=== PATIENT | male | born 1980 | race Caucasian/White ===

== ENCOUNTER 2023-03-19 16:29 | Emergency (ER) | payer BC ==
--- NOTE | 2023-03-19 16:52 | ED ---
General Adult HPI - General Source: patient, RN notes reviewed <Pattie Saeed - Last Filed: 03/19/23 17:09> - General Source: patient, family, RN notes reviewed Limitations: no limitations <Ramirez Ventura - Last Filed: 03/19/23 20:07> - General Stated complaint: Syncope Time Seen by Provider: 03/19/23 16:52 - History of Present Illness Initial comments: 42 year old male BIBA to the emergency department for chief complaint of syncope. He states that he was working in the yard all day when he disturbed a bees nest and started running from the bees. He states that he tripped over a log and injured his right calf. He states that following this he went into the house and was sitting in a chair when he states he "didn't feel right." He reports that he passed out and felt sweaty following this. He reports his states he was out for around 30 seconds. Did not fall or hit his head. Denies chest pain, shortness of breath. (Pattie Saeed) Patient is a pleasant 42-year-old male presenting to the emergency department following several events. 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 Patient was stung by a bee left hand. Patient was then right away and felt a pop in his rig ht calf. Patient states it felt like he was hit with a baseball bat. Patient has been having discomfort since that time. Discomfort is more moderate at this time. When patient got back inside he did have a syncopal episode. No injury. No headache or confusion. No neck or back pain. No chest pain or dyspnea. No abdominal pain. (Ramirez Ventura) - Related Data Allergies Allergy/AdvReac Type Severity Reaction Status Date / Time No Known Allergies Allergy Verified 03/19/23 16:55 Review of Systems ROS Other: All systems not noted in ROS Statement are negative. <Pattie Saeed - Last Filed: 03/19/23 17:09> ROS Other: All systems not noted in ROS Statement are negative. Constitutional: Denies: fever Eyes: Denies: eye pain ENT: Denies: ear pain Respiratory: Denies: cough, dyspnea Cardiovascular: Denies: chest pain Endocrine: Denies: fatigue Gastrointestinal: Denies: abdominal pain Genitourinary: Denies: dysuria Neurological: Denies: headache, weakness, confusion <Ramirez Ventura - Last Filed: 03/19/23 20:07> ROS Statement: Those systems with pertinent positive or pertinent negative responses have been documented in the HPI. General Exam <Pattie Saeed - Last Filed: 03/19/23 17:09> Limitations: no limitations General appearance: alert, in no apparent distress Head exam: Present: normocephalic Eye exam: Present: normal appearance, PERRL, EOMI ENT exam: Present: normal oropharynx Neck exam: Present: normal inspection. Absent: tenderness, meningismus Respiratory exam: Present: normal lung sounds bilaterally Cardiovascular Exam: Present: regular rate, normal rhythm Expanded Peripheral pulses: 2+: Radial (R), Radial (L), Dorsalis Pedis (R), Dorsalis Pedis (L) GI/Abdominal exam: Present: soft. Absent: tenderness Extremities exam: Present: calf tenderness (Patient does have some tenderness right calf. Achilles tendon does appear to be intact with squeezing of the calf.) Neurological exam: Present: alert, oriented X3, CN II-XII intact. Absent: motor sensory deficit Expanded Neurological exam: Present: protecting the airway Speech: Present: fluid speech Cranial nerves: EOM's Intact: Normal Motor strength exam: RUE: 5, LUE: 5, RLE: 5, LLE: 5 Eye Response: (4) open spontaneously Motor Response: (6) obeys commands Verbal Response: (5) oriented Psychiatric exam: Present: normal affect, normal mood Skin exam: Present: normal color <Ramirez Ventura - Last Filed: 03/19/23 20:07> - General Exam Comments Initial Comments: Visual Physical Exam Vital signs reviewed General: Well-appearing, nontoxic, no acute distress. Head: Normocephalic, atraumatic Eyes: PERRLA, EOMI ENT: Airway patent Chest: Nonlabored breathing Skin: No visual rash, normal skin tone Neuro: Alert and oriented 3 Musculoskeletal: No gross abnormalities (Pattie Saeed) Course Vital Signs 03/19/23 16:48 Temperature 98.3 F Pulse Rate 76 Respiratory 18 Rate Blood Pressure 157/98 O2 Sat by Pulse 100 Oximetry EKG Findings - EKG Results: EKG: interpreted by ERMD (Incomplete right bundle-branch), sinus rhythm, normal axis, normal ST/T <Ramirez Ventura - Last Filed: 03/19/23 20:07> Procedures - Orthopedic Splinting/Casting Injury #1 Side: right Upper Extremity Immobilizer: danny tape Lower Extremity Immobilizer: posterior splint <Ramirez Ventura - Last Filed: 03/19/23 20:07> Medical Decision Making <Pattie Saeed - Last Filed: 03/19/23 17:09> - Lab Data Result diagrams: 03/19/23 18:34 03/19/23 18:34 <Ramirez Ventura - Last Filed: 03/19/23 20:07> - Medical Decision Making I preformed the quick note portion of this chart. Electronically signed by Pattie Saeed PA-C. (Pattie Saeed) Was pt. sent in by a medical professional or institution ([facility], SLEEP TECH, urgent care, hospital, or shelter...) When possible be specific @ -No Did you speak to anyone other than the patient for history (EMS, parent, family, police, friend...)? What history was obtained from this source @ - is present and helps provide history Did you review nursing and triage notes (agree or disagree)? Why? @ -I reviewed and agree with nursing and triage notes Were old charts reviewed (outside hosp., previous admission, EMS record, old EKG, old radiological studies, urgent care reports/EKG's, shelter records)? Report findings @ -No old charts were reviewed Differential Diagnosis (chest pain, altered mental status, abdominal pain women, abdominal pain men, vaginal bleeding, weakness, fever, dyspnea, syncope, headache, dizziness, GI bleed, back pain, seizure, CVA, palpatations, mental health, musculoskeletal)? @ -Differential Musculoskeletal Muscular strain, contusion, ligament sprain, fracture, arthritis, septic arthritis, bursitis, cellulitis, muscle spasm, nerve compression, DVT, arterial occlusion, herpes zoster, electrolyte abnormality, tumor.... This is not meant to be in all inclusive list Differential Syncope: Valvular disease, hypertrophic cardiomyopathy, pulmonary embolism, tamponade, tachycardia, bradycardia, ID, hypovolemia, hemorrhage, dissection, anemia, intracranial hemorrhage, seizure, hypoglycemia, carbon monoxide poisoning, this is not meant to be an all-inclusive list. EKG interpreted by me (3pts min.). @ -As above X-rays interpreted by me (1pt min.). @ -Chest x-ray shows no acute process CT interpreted by me (1pt min.). @ -None done U/S interpreted by me (1pt. min.). @ -Report reviewed What testing was considered but not performed or refused? (CT, X-rays, U/S, labs)? Why? @ -None What meds were considered but not given or refused? Why? @ -None Did you discuss the management of the patient with other professionals (professionals i.e. , PA, SLEEP TECH, lab, RT, psych nurse, delinquency prevention social worker, covering and lining supervisor, teacher, mail officer, keycase assembler)? Give summary @ -No Was smoking cessation discussed for >3mins.? @ -No Was critical care preformed (if so, how long)? @ -No Were there social determinants of health that impacted care today? How? (Homelessness, low income, unemployed, alcoholism, drug addiction, transportation, low edu. Level, literacy, decrease access to med. care, senior living, rehab)? @ -No Was there de-escalation of care discussed even if they declined (Discuss DNR or withdrawal of care, Hospice)? DNR status @ -No What co-morbidities impacted this encounter? (DM, HTN, Smoking, COPD, CAD, Cancer, CVA, ARF, Chemo, Hep., AIDS, mental health diagnosis, sleep apnea, morbid obesity)? @ -None Was patient admitted / discharged? Hospital course, mention meds given and route, prescriptions, significant lab abnormalities, going to OR and other pertinent info. @ -Patient reevaluated and resting comfortably in bed. Patient only complaining of some discomfort of his right calf. Patient and family updated on results and need for follow-up. Specifically updated for follow-up as well with orthopedics. Splint placed. Prescription given for crutches. Patient is made aware of concern for ruptured calf muscle. Undiagnosed new problem with uncertain prognosis? @ -No Drug Therapy requiring intensive monitoring for toxicity (Heparin, Nitro, Insulin, Cardizem)? @ -No Were any procedures done? @ -See above Diagnosis/symptom? @ -Calf Strain, syncope Acute, or Chronic, or Acute on Chronic? @ -Acute, acute Uncomplicated (without systemic symptoms) or Complicated (systemic symptoms)? @ -default Side effects of treatment? @ -No Exacerbation, Progression, or Severe Exacerbation? @ -No Poses a threat to life or bodily function? How? (Chest pain, USA, ID, pneumonia, PE, COPD, DKA, ARF, appy, cholecystitis, CVA, Diverticulitis, Homicidal, Suicidal, threat to staff... and all critical care pts) @ -No (Ramirez Ventura) - Lab Data Lab Results 03/19/23 03/19/23 03/19/23 Range/Units 18:30 18:34 18:34 WBC 15.0 H (3.8-10.6) k/uL RBC 4.96 (4.30-5.90) m/uL Hgb 15.9 (13.0-17.5) gm/dL Hct 45.2 (39.0-53.0) % MCV 91.0 (80.0-100.0) fL MCH 32.0 (25.0-35.0) pg MCHC 35.2 (31.0-37.0) g/dL RDW 11.8 (11.5-15.5) % Plt Count 216 (150-450) k/uL MPV 7.4 Neutrophils % 92 % Lymphocytes % 5 % Monocytes % 2 % Eosinophils % 0 % Basophils % 0 % Neutrophils # 13.8 H (1.3-7.7) k/uL Lymphocytes # 0.8 L (1.0-4.8) k/uL Monocytes # 0.3 (0-1.0) k/uL Eosinophils # 0.0 (0-0.7) k/uL Basophils # 0.0 (0-0.2) k/uL PT 10.3 (9.0-12.0) sec INR 1.0 (<1.2) APTT 22.9 (22.0-30.0) sec Sodium (137-145) mmol/L Potassium (3.5-5.1) mmol/L Chloride (98-107) mmol/L Carbon Dioxide (22-30) mmol/L Anion Gap mmol/L BUN (9-20) mg/dL Creatinine (0.66-1.25) mg/dL Est GFR (CKD-EPI)AfAm (>60 ml/min/1.73 sqM) Est GFR (CKD-EPI)NonAf (>60 ml/min/1.73 sqM) Glucose (74-99) mg/dL POC Glucose (mg/dL) 119 H (70-110) mg/dL POC Glu Granite Installer ID Diana Sy Calcium (8.4-10.2) mg/dL Magnesium (1.6-2.3) mg/dL Total Bilirubin (0.2-1.3) mg/dL AST (17-59) U/L ALT (4-49) U/L Alkaline Phosphatase (38-126) U/L Troponin I (0.000-0.034) ng/mL Total Protein (6.3-8.2) g/dL Albumin (3.5-5.0) g/dL 03/19/23 03/19/23 Range/Units 18:34 18:34 WBC (3.8-10.6) k/uL RBC (4.30-5.90) m/uL Hgb (13.0-17.5) gm/dL Hct (39.0-53.0) % MCV (80.0-100.0) fL MCH (25.0-35.0) pg MCHC (31.0-37.0) g/dL RDW (11.5-15.5) % Plt Count (150-450) k/uL MPV Neutrophils % % Lymphocytes % % Monocytes % % Eosinophils % % Basophils % % Neutrophils # (1.3-7.7) k/uL Lymphocytes # (1.0-4.8) k/uL Monocytes # (0-1.0) k/uL Eosinophils # (0-0.7) k/uL Basophils # (0-0.2) k/uL PT (9.0-12.0) sec INR (<1.2) APTT (22.0-30.0) sec Sodium 138 (137-145) mmol/L Potassium 3.8 (3.5-5.1) mmol/L Chloride 101 (98-107) mmol/L Carbon Dioxide 25 (22-30) mmol/L Anion Gap 12 mmol/L BUN 13 (9-20) mg/dL Creatinine 0.75 (0.66-1.25) mg/dL Est GFR (CKD-EPI)AfAm >90 (>60 ml/min/1.73 sqM) Est GFR (CKD-EPI)NonAf >90 (>60 ml/min/1.73 sqM) Glucose 147 H (74-99) mg/dL POC Glucose (mg/dL) (70-110) mg/dL POC Glu Granite Installer ID Calcium 9.2 (8.4-10.2) mg/dL Magnesium 1.9 (1.6-2.3) mg/dL Total Bilirubin 0.5 (0.2-1.3) mg/dL AST 35 (17-59) U/L ALT 25 (4-49) U/L Alkaline Phosphatase 68 (38-126) U/L Troponin I <0.012 (0.000-0.034) ng/mL Total Protein 7.0 (6.3-8.2) g/dL Albumin 4.4 (3.5-5.0) g/dL Disposition <Pattie Saeed - Last Filed: 03/19/23 17:09> Is patient prescribed a controlled substance at d/c from ED?: No Time of Disposition: 20:06 <Ramirez Ventura - Last Filed: 03/19/23 20:07> Clinical Impression: Strain of right calf muscle, Syncope Disposition: HOME SELF-CARE Condition: Stable Instructions (If sedation given, give patient instructions): Muscle Strain (ED), Leg Pain (ED), Syncope (ED) Additional Instructions: Please do follow-up to primary care physician in the next day or 2 for recheck. Prescription provided for crutches. Please also follow-up with orthopedics and have them further evaluate leg. There is concern for possible muscle tear or Achilles tear versus other. Return for chest pain or shortness of breath, headache or confusion, weakness, abdominal or back pain, worsening symptoms or other area other concerns. Referrals: Tim Samayoa MD [STAFF PHYSICIAN] - 1-2 days Adam Greer DO [Doctor of Osteopathic Medicine] - 1-2 days
[2023-03-19 17:02] VITALS: RESP 18; TEMP 98.3
[2023-03-19 18:32] LABS: Glucose,Whole Blood 119 mg/dL (70-110)
--- NOTE | 2023-03-19 19:16 | US ---
EXAMINATION TYPE: US venous doppler duplex LE RT DATE OF EXAM: 03/19/2023 6:48 PM COMPARISON: NONE CLINICAL INDICATION: Male, 42 years old with history of pain; Pt states he thinks he tore a muscle in his leg after running away from bees today. No hx of DVT. Not on blood thinners. Pain in calf SIDE PERFORMED: Right TECHNIQUE: The lower extremity deep venous system is examined utilizing real time linear array sonog chasity with graded compression, doppler sonography and color-flow sonography. VESSELS IMAGED: Common Femoral Vein Deep Femoral Vein Greater Saphenous Vein * Femoral Vein Popliteal Vein Small Saphenous Vein * Proximal Calf Veins (* superficial vessels) Right Leg: No evidence for DVT IMPRESSION: Grayscale, color doppler, spectral doppler imaging performed of the deep veins of the lo wer extremities. There is normal flow, compressibility, vascular waveforms.
[2023-03-19 19:18] LABS: Basophils % (A) 0 %; Eosinophils % (A) 0 %; HCT 45.2 % (39.0-53.0); HGB 15.9 gm/dL (13.0-17.5); Lymphocytes # (A) 0.8 k/uL (1.0-4.8); Lymphocytes % (A) 5 %; MCHC 35.2 g/dL (31.0-37.0); Mean Platelet Volume 7.4; Monocytes # (A) 0.3 k/uL (0-1.0); Monocytes % (A) 2 %; Neutrophils # (A) 13.8 k/uL (1.3-7.7); Neutrophils % (A) 92 %; Platelet Count 216 k/uL (150-450); RBC 4.96 m/uL (4.30-5.90); RDW 11.8 % (11.5-15.5)
[2023-03-19 19:26] LABS: ALT 25 U/L (4-49); AST 35 U/L (17-59); African American GFR (CKD) >90 (>60 ml/min/1.73 sqM); Albumin 4.4 g/dL (3.5-5.0); Alkaline Phosphatase 68 U/L (38-126); Anion Gap 12 mmol/L; Blood Urea Nitrogen 13 mg/dL (9-20); Calcium 9.2 mg/dL (8.4-10.2); Carbon Dioxide 25 mmol/L (22-30); Chloride 101 mmol/L (98-107); Glucose 147 mg/dL (74-99); Magnesium 1.9 mg/dL (1.6-2.3); Non-African American GFR(CKD) >90 (>60 ml/min/1.73 sqM); Potassium 3.8 mmol/L (3.5-5.1); Sodium 138 mmol/L (137-145); Total Bilirubin 0.5 mg/dL (0.2-1.3)
[2023-03-19 19:29] LABS: Partial Thromboplastin Time 22.9 sec (22.0-30.0); Prothrombin Time 10.3 sec (9.0-12.0)
--- NOTE | 2023-03-19 19:39 | XR ---
EXAMINATION TYPE: XR chest 2V DATE OF EXAM: 03/19/2023 7:21 PM CLINICAL INDICATION:Male, 42 years old with history of syncope; COMPARISON: None TECHNIQUE: XR chest 2V Frontal and lateral views of the chest. FINDINGS: Lungs/Pleura: There is no evidence of pleural effusion, focal consolidation, or pneumothorax. Pulmonary vascularity: Unremarkable. Heart/mediastinum: Cardiomediastinal silhouette is unremarkable. Musculoskeletal: No acute osseous pathology. IMPRESSION: No acute cardiopulmonary disease/process.
[2023-03-19] MEDS ORDERED: ACET/COD 300 MG/30 MG STARTER PACK 6 TAB BTL PO STA (20:06)
[2023-03-19 20:27] VITALS: BP 136/88; PULSE 93
== END 2023-03-19 20:31 | disposition home or self-care (01) ==
LOC: EC 16:29
DX: S86.911A Strain of unspecified muscle(s) and tendon(s) at lower leg level, right leg, initial encounter (principal); R55 Syncope and collapse; W01.0XXA Fall on same level from slipping, tripping and stumbling without subsequent striking against object, initial encounter; Y92.096 Garden or yard of other non-institutional residence as the place of occurrence of the external cause; Y93.02 Activity, running
CPT/HCPCS: 29515; 36415; 71046; 80053; 83735; 84484; 85025; 85610; 85730; 93005; 99285